=== PATIENT | male | born 1990 | race African-American/Black ===

== ENCOUNTER 2017-09-04 02:15 | Emergency (ER) | payer SELFPAY ==
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
== END 2017-09-04 06:19 | disposition home or self-care (01) ==
LOC: ERS 02:15
DX: F10.129 Alcohol abuse with intoxication, unspecified (principal)
CPT/HCPCS: 70450; 72125; 94760; 96360

== ENCOUNTER 2020-07-16 19:25 | Emergency (ER) | payer SELFPAY ==
[2020-07-16] MEDS ORDERED: Ketorolac Tromethamine 30 MG/ML VIAL ONE (20:10)
== END 2020-07-16 20:34 | disposition home or self-care (01) ==
LOC: ERS 19:25
DX: S20.211A Contusion of right front wall of thorax, initial encounter (principal); F17.210 Nicotine dependence, cigarettes, uncomplicated; W18.2XXA Fall in (into) shower or empty bathtub, initial encounter
CPT/HCPCS: 71046; 96372; J1885

== ENCOUNTER 2020-09-27 10:44 | Emergency (ER) | payer SELFPAY ==
[2020-09-27 16:55] LABS: SARS-CoV-2 PCR by NAA Not Detected (NotDetected)
== END 2020-09-27 11:40 | disposition home or self-care (01) ==
LOC: ERS 10:44
DX: Z20.822 Contact with and (suspected) exposure to COVID-19 (principal); F17.210 Nicotine dependence, cigarettes, uncomplicated
CPT/HCPCS: 99283; U0003; U0005

== ENCOUNTER 2020-11-13 06:46 | Emergency (ER) | payer SELFPAY | END 2020-11-13 07:57 | disposition home or self-care (01) | LOC: ERS 06:46 | DX: M72.2 Plantar fascial fibromatosis (principal); M79.671 Pain in right foot; M79.672 Pain in left foot; F17.210 Nicotine dependence, cigarettes, uncomplicated | CPT/HCPCS: 99283 ==

== ENCOUNTER 2022-08-04 15:28 | Emergency (ER) | payer SELFPAY ==
[2022-08-04] MEDS ORDERED: Ondansetron ODT 4 MG TAB ONE (15:55)
[2022-08-04 16:13] LABS: Hemoglobin 15.4 g/dL (14.0-18.0); Mean Corpuscular HGB CONC 34.8 g/dL (32.0-36.0); Mean Corpuscular Hemoglobin 31.8 pg (27.0-31.0); Mean Corpuscular Volume 91.2 fl (78.0-98.0); Platelet Count 214 10x3/uL (130-400); RBC Distribution Width 12.3 % (11.5-14.5); Red Blood Cell (RBC) Count 4.86 mill/uL (4.70-6.10); White Blood Cell (WBC) Count 4.8 10x3/uL (4.8-10.8)
[2022-08-04 16:36] LABS: ALT (SGPT) 45 U/L (8-55); AST (SGOT) 48 U/L (5-34); Albumin 4.2 g/dL (3.5-5.0); Alkaline Phosphatase 101 U/L (40-110); Anion Gap 17 mmol/L (10-20); BUN (Urea Nitrogen) 5 mg/dL (8.9-20.6); Bilirubin, Total 1.4 mg/dL (0.2-1.2); Calc. Creatinine Clearance 0 mL/min (70-130); Calcium 8.8 mg/dL (7.8-10.44); Carbon Dioxide 23 mmol/L (22-29); Chloride 101 mmol/L (98-107); Eosinophils 1 % (0-10); Estimated GFR 94; Globulin 3.2 g/dL (2.4-3.5); Glucose 163 mg/dL (70-105); Lipase 15 U/L (8-78); Lymphocytes 47 % (21-51); MDiff Complete? YES; Monocytes 12 % (0-10); Neutrophil 21 % (42-75); Platelet Morphology Comment Appears Adequate; Potassium 3.5 mmol/L (3.5-5.1); Protein, Total 7.4 g/dL (6.0-8.3); RBC Morphology Normal; Reactive Lymphocytes 19 % (0-10); Sodium 137 mmol/L (136-145)
== END 2022-08-04 17:05 | disposition home or self-care (01) ==
LOC: ERS 15:28
DX: R11.2 Nausea with vomiting, unspecified (principal); F17.210 Nicotine dependence, cigarettes, uncomplicated; Z20.822 Contact with and (suspected) exposure to COVID-19
CPT/HCPCS: 36415; 80053; 83690; 85025; 87804; 99284; Q0162; U0003; U0005